=== PATIENT | male | born 1960 | race Caucasian/White ===

== ENCOUNTER 2024-01-23 16:10 | Outpatient (REF) | payer MEDICARE, MEDICAID, SELFPAY ==
[2024-01-23 16:41] LABS: INR 2.52; Prothrombin Time 24.4 sec (9.0-11.6)
== END 2024-01-23 16:11 | disposition home or self-care (01) ==
LOC: LAB 16:10
DX: D64.9 Anemia, unspecified (principal)
CPT/HCPCS: 36415; 85610